=== PATIENT | male | born 1960 | race Caucasian/White ===

== ENCOUNTER 2016-10-11 18:59 | Emergency (ER) | payer BC, OTHER ==
--- NOTE | ~2016-10-11 | ER ---
PATIENT'S NAME: FILIPE LIRA Dolly [facility] AGE: 56 Y [address] ROOM: [place] [address] LOCATION: [facility] ADMIT DATE: 10/11/2016 ER/Outpatient Report DISCHARGE DATE: 10/11/2016 FAMILY PHYSICIAN: Physician, Unknown ATTENDING PHYSICIAN: Kp Henry ADDENDUM: The patient has previously been an inpatient at [facility]. MD TAYLOR AGUIRRE/justinl /[id number] d: 10/12/16 0147 t: 10/18/16 0616, OUTPATIENT REPORT
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
[2016-10-11 20:13] LABS: BASOPHIL # 0.1 K/uL (0.0-0.2); BASOPHIL % 0.5 %; EOSINOPHIL # 0.1 K/uL (0.0-0.5); EOSINOPHIL % 0.8 %; HEMATOCRIT 42.1 % (37.0-53.0); HEMOGLOBIN 13.8 g/dL (12.0-17.0); IMMATURE GRANULOCYTE # 0.1 K/uL (0.0-0.3); IMMATURE GRANULOCYTE % 0.5 %; LYMPHOCYTE # 1.6 K/uL (0.8-4.0); LYMPHOCYTE % 12.7 %; MCH 26.8 pg (27.0-34.0); MCHC 32.8 gm/dL (32.0-36.5); MCV 81.7 fl (83.0-98.0); MONOCYTE # 1.2 K/uL (0.0-1.0); MONOCYTE % 9.4 %; MPV 11.3 fl (9.4-12.4); NEUTROPHIL # (ANC) 9.6 K/uL (1.4-9.0); NEUTROPHIL % 76.1 %; NRBC % 0 /100WBC (0-0.00); PLATELET COUNT 314 K/uL (150-450); RBC 5.15 M/uL (4.00-6.00); RDW-CV 14.5 % (11.9-14.6); WBC 12.6 K/uL (4.0-11.0)
[2016-10-11 20:23] LABS: PROTIME 10.7 SECONDS (9.6-11.1)
[2016-10-11 20:36] LABS: ALBUMIN 3.2 gm/dL (3.5-5.0); ALK PHOS 69 IU/L (33-138); ALT 48 IU/L (12-78); AST 26 IU/L (10-40); BLOOD UREA NITROGEN 15 mg/dL (6-24); CHLORIDE 109 mMol/L (96-110); CO2 26 mMol/L (22-32); CPK 121 IU/L (35-332); ESTIMATED GFR (MDRD EQUATION) > 60; SODIUM 142 mMol/L (135-145); TOTAL PROTEIN 6.9 g/dL (6.0-8.4)
[2016-10-11 20:40] LABS: TOTAL BILIRUBIN 0.4 mg/dL (0.0-1.5)
== END 2016-10-11 20:58 | disposition disaster alternative care site (69) ==
LOC: GACC 18:59
PROVIDERS: Emergency Medicine
DX: Z04.1 Encounter for examination and observation following transport accident (principal); V49.40XA Driver injured in collision with unspecified motor vehicles in traffic accident, initial encounter
CPT/HCPCS: G0480; J7030; Q9967